=== PATIENT | male | born 1950 | race Caucasian/White ===

== ENCOUNTER 2019-04-25 20:34 | Inpatient (IN) ==
[2019-04-25] MEDS ORDERED: *HR* Enoxaparin 100 MG/ML SYRINGE SQ STA (20:51)
[2019-04-25 21:13] LABS: Basophils % 0.4 %; Eosinophils # 0.2 K/mcL (0.0-0.6); Eosinophils % 2.1 %; Hematocrit 40.8 % (37.5-50.1); Hemoglobin 13.9 g/dL (12.9-16.9); Immature Granulocytes % 0.5 % (0-4); Lymphocytes # 1.5 K/mcL (0.6-4.6); Lymphocytes % 18.5 %; Mean Corpuscular HGB Conc 34.1 g/dL (31.6-35.5); Mean Corpuscular Hemoglobin 27.3 pg (28.0-33.3); Mean Platelet Volume 9.6 fL (9.4-12.4); Monocytes # 0.6 K/mcL (0.0-1.3); Monocytes % 7.8 %; Neutrophils # 5.8 K/mcL (1.6-8.9); Platelet Count 230 K/mcL (140-400); Red Cell Distribution Width 14.5 % (11.5-14.5); Segmented Neutrophils % 70.7 %; White Blood Count 8.2 K/mcL (4.3-11.1)
[2019-04-25] MEDS: DilTIAZem 50 MG in 0.9 % Sodium Chloride 40 ML IVC SCH (21:31)
[2019-04-25 21:33] LABS: BUN/Creatinine Ratio 24 (6-26); Blood Urea Nitrogen 23 mg/dL (8-23); Carbon Dioxide 24 mEq/L (23-29); Chloride 107 mEq/L (98-107); Glucose 226 mg/dL (70-105); Osmolality,Calculated 299 (280-300); Potassium 4.1 mEq/L (3.5-5.1); Sodium 139 mEq/L (136-145); Troponin I < 0.03 ng/mL (< 0.04); eGFR For African Americans > 60 (> 60); eGFR For Non-African Americans > 60 (> 60)
[2019-04-25 21:37] LABS: INR 1.1; Prothrombin Time 12.3 Seconds (9.4-12.1)
[2019-04-25 21:40] LABS: Activated Partial Thrombo Time 28.9 Seconds (26.0-36.0)
[2019-04-25] MEDS ORDERED: Isovue-370 500 ML BOTTLE IVP ONE (22:16)
[2019-04-26] MEDS: DilTIAZem 50 MG in 0.9 % Sodium Chloride 40 ML IVC SCH ×4 (02:31→22:47)
[2019-04-26] MEDS: cloNIDine HCl 0.1 MG TABLET PO SCH ×3 (02:31→21:15)
[2019-04-26] MEDS: Benzonatate 100 MG CAPSULE PO PRN ×3 (02:31→22:46)
[2019-04-26] MEDS ORDERED: Ondansetron ODT 4 MG TAB.RAPDIS SL PRN (02:42)
[2019-04-26] MEDS ORDERED: Naloxone 0.4 MG/ML INJ IVP PRN (02:42)
[2019-04-26 03:13] LABS: Basophils % 0.3 %; Eosinophils # 0.1 K/mcL (0.0-0.6); Eosinophils % 1.3 %; Hematocrit 39.6 % (37.5-50.1); Hemoglobin 13.5 g/dL (12.9-16.9); Immature Granulocytes % 0.5 % (0-4); Lymphocytes # 1.5 K/mcL (0.6-4.6); Mean Corpuscular HGB Conc 34.1 g/dL (31.6-35.5); Mean Corpuscular Hemoglobin 27.3 pg (28.0-33.3); Mean Corpuscular Volume 80.2 fL (83.0-100.0); Mean Platelet Volume 9.8 fL (9.4-12.4); Monocytes # 0.7 K/mcL (0.0-1.3); Monocytes % 7.6 %; Neutrophils # 6.4 K/mcL (1.6-8.9); Platelet Count 215 K/mcL (140-400); Red Blood Count 4.94 M/mcL (4.19-5.50); Red Cell Distribution Width 14.6 % (11.5-14.5); Segmented Neutrophils % 73.3 %; White Blood Count 8.7 K/mcL (4.3-11.1)
[2019-04-26 03:19] LABS: VBG HCO3 22 mEq/L (21-27); VBG PCO2 31 mmHg (41-51); VBG PH 7.45 pH Units (7.32-7.42); VBG PO2 211 mmHg (25-50)
[2019-04-26 03:42] LABS: Adenovirus Not Detected (Not Detect); Bordetella Pertussis Not Detected (Not Detect); Chlamydophila pneumoniae Not Detected (Not Detect); Coronavirus 229E Not Detected (Not Detect); Coronavirus HKU1 Not Detected (Not Detect); Coronavirus NL63 Not Detected (Not Detect); Coronavirus OC43 Not Detected (Not Detect); Human Metapneumovirus Not Detected (Not Detect); Human Rhinovirus/Enterovirus Not Detected (Not Detect); Influenza A Subtype 2009 H1 Not Detected (Not Detect); Influenza B Not Detected (Not Detect); Mycoplasma pneumoniae Not Detected (Not Detect); Parainfluenza Virus 1 Not Detected (Not Detect); Parainfluenza Virus 2 Not Detected (Not Detect); Parainfluenza Virus 3 Not Detected (Not Detect); Parainfluenza Virus 4 Not Detected (Not Detect); Respiratory Syncytial Virus Not Detected (Not Detect)
[2019-04-26] MEDS: Furosemide 40 MG/4 ML VIAL IVP SCH ×3 (03:55→21:16)
[2019-04-26] MEDS ORDERED: hydrOXYzine pamoate 25 MG CAPSULE PO ONE (04:06)
[2019-04-26 05:44] LABS: Alanine Aminotransferase 15 Units/L (7-52); Albumin 4.3 g/dL (3.5-5.7); Albumin/Globulin Ratio 1.4 (1.1-2.2); Alkaline Phosphatase 143 Units/L (34-104); Aspartate Amino Transferase 18 Units/L (13-39); BUN/Creatinine Ratio 23 (6-26); Blood Urea Nitrogen 19 mg/dL (8-23); Calcium 9.7 mg/dL (8.6-10.3); Carbon Dioxide 22 mEq/L (23-29); Chloride 107 mEq/L (98-107); Globulin 3.1 g/dL (2.4-3.5); Glucose 188 mg/dL (70-105); Magnesium 1.9 mg/dL (1.6-2.6); Osmolality,Calculated 293 (280-300); Phosphorous 2.8 mg/dL (2.7-4.5); Potassium 3.5 mEq/L (3.5-5.1); Sodium 138 mEq/L (136-145); Total Protein 7.4 g/dL (6.4-8.9); eGFR For African Americans > 60 (> 60); eGFR For Non-African Americans > 60 (> 60)
[2019-04-26] MEDS ORDERED: D5% in Water 1,000 ML IVC PRN (07:35)
[2019-04-26] MEDS ORDERED: *HR* Dextrose 50 % in Water (Syg) 50 ML SYRINGE IVP PRN (07:35)
[2019-04-26] MEDS ORDERED: Dextrose Gel 15 GM/37.5 ML TUBE PO PRN ×2 (07:35)
[2019-04-26] MEDS: carvediloL 25 MG TABLET PO SCH ×2 (08:10→17:38)
[2019-04-26] MEDS: Apixaban 5 MG TABLET PO SCH ×2 (08:10→21:16)
[2019-04-26] MEDS: Insulin DETEMIR 100 UNIT/ML X5UNITS SQ SCH ×2 (09:03→21:15)
[2019-04-26] MEDS ORDERED: GuaiFENesin Liq 200 MG/10 ML UDC PO PRN (11:16)
[2019-04-26] MEDS: Insulin LISPRO 300 UNITS/3 ML VIAL SQ SCH ×2 (12:07→17:38)
[2019-04-27 02:53] LABS: Basophils % 0.4 %; Eosinophils # 0.2 K/mcL (0.0-0.6); Eosinophils % 2.1 %; Hematocrit 37.9 % (37.5-50.1); Hemoglobin 12.8 g/dL (12.9-16.9); Immature Granulocytes % 0.3 % (0-4); Lymphocytes # 1.6 K/mcL (0.6-4.6); Lymphocytes % 22.2 %; Mean Corpuscular HGB Conc 33.8 g/dL (31.6-35.5); Mean Corpuscular Hemoglobin 26.9 pg (28.0-33.3); Mean Corpuscular Volume 79.6 fL (83.0-100.0); Mean Platelet Volume 9.5 fL (9.4-12.4); Monocytes # 0.7 K/mcL (0.0-1.3); Monocytes % 9.6 %; Neutrophils # 4.6 K/mcL (1.6-8.9); Platelet Count 225 K/mcL (140-400); Red Blood Count 4.76 M/mcL (4.19-5.50); Red Cell Distribution Width 14.6 % (11.5-14.5); Segmented Neutrophils % 65.4 %; White Blood Count 7.1 K/mcL (4.3-11.1)
[2019-04-27 03:06] LABS: BUN/Creatinine Ratio 23 (6-26); Blood Urea Nitrogen 28 mg/dL (8-23); Calcium 9.5 mg/dL (8.6-10.3); Carbon Dioxide 25 mEq/L (23-29); Chloride 106 mEq/L (98-107); Glucose 147 mg/dL (70-105); Osmolality,Calculated 302 (280-300); Phosphorous 4.5 mg/dL (2.7-4.5); Potassium 3.4 mEq/L (3.5-5.1); Sodium 142 mEq/L (136-145); eGFR For African Americans > 60 (> 60); eGFR For Non-African Americans 59 (> 60)
[2019-04-27] MEDS: cloNIDine HCl 0.1 MG TABLET PO SCH ×2 (07:56→20:58)
[2019-04-27] MEDS: carvediloL 25 MG TABLET PO SCH (07:56)
[2019-04-27] MEDS: Furosemide 40 MG/4 ML VIAL IVP SCH (07:56)
[2019-04-27] MEDS: Apixaban 5 MG TABLET PO SCH ×2 (07:56→20:58)
[2019-04-27] MEDS: Insulin LISPRO 300 UNITS/3 ML VIAL SQ SCH ×3 (07:57→16:40)
[2019-04-27] MEDS: Insulin DETEMIR 100 UNIT/ML X5UNITS SQ SCH ×2 (07:58→21:10)
[2019-04-27] MEDS: DilTIAZem 50 MG in 0.9 % Sodium Chloride 40 ML IVC SCH (15:38)
[2019-04-27] MEDS ORDERED: Acetaminophen 325 MG TABLET PO PRN (17:53)
[2019-04-27] MEDS: Benzonatate 100 MG CAPSULE PO PRN (21:08)
[2019-04-28 05:21] LABS: Hematocrit 38.9 % (37.5-50.1); Hemoglobin 12.8 g/dL (12.9-16.9); Mean Corpuscular HGB Conc 32.9 g/dL (31.6-35.5); Mean Corpuscular Hemoglobin 27.2 pg (28.0-33.3); Mean Corpuscular Volume 82.6 fL (83.0-100.0); Mean Platelet Volume 9.7 fL (9.4-12.4); Platelet Count 196 K/mcL (140-400); Red Blood Count 4.71 M/mcL (4.19-5.50); Red Cell Distribution Width 14.6 % (11.5-14.5); White Blood Count 6.3 K/mcL (4.3-11.1)
[2019-04-28 05:33] LABS: BUN/Creatinine Ratio 26 (6-26); Blood Urea Nitrogen 27 mg/dL (8-23); Calcium 9.1 mg/dL (8.6-10.3); Carbon Dioxide 25 mEq/L (23-29); Chloride 109 mEq/L (98-107); Glucose 178 mg/dL (70-105); Osmolality,Calculated 302 (280-300); Potassium 3.6 mEq/L (3.5-5.1); Sodium 141 mEq/L (136-145); eGFR For African Americans > 60 (> 60); eGFR For Non-African Americans > 60 (> 60)
[2019-04-28 07:57] VITALS: BP 107/96
[2019-04-28] MEDS: Insulin LISPRO 300 UNITS/3 ML VIAL SQ SCH ×2 (08:25→11:58)
[2019-04-28] MEDS: Apixaban 5 MG TABLET PO SCH (08:26)
[2019-04-28] MEDS: cloNIDine HCl 0.1 MG TABLET PO SCH (08:27)
[2019-04-28] MEDS: Insulin DETEMIR 100 UNIT/ML X5UNITS SQ SCH (08:31)
[2019-04-28] MEDS ORDERED: Furosemide 40 MG TABLET PO SCH (09:00)
== END 2019-04-28 15:24 | disposition home or self-care (01) | DRG 308 ==
LOC: EMEROOARM 20:34 → 2NENU 20:34 → SUATTDRO 04-26 12:44
PROVIDERS: ADMIT Internal Medicine; ATTEND Family Medicine

== ENCOUNTER 2019-05-03 19:51 | Inpatient (IN) ==
[2019-05-03 20:29] LABS: Basophils % 0.4 %; Eosinophils # 0.1 K/mcL (0.0-0.6); Hematocrit 41.2 % (37.5-50.1); Immature Granulocytes % 0.4 % (0-4); Lymphocytes # 1.5 K/mcL (0.6-4.6); Lymphocytes % 13.6 %; Mean Corpuscular Hemoglobin 27.4 pg (28.0-33.3); Mean Corpuscular Volume 80.6 fL (83.0-100.0); Mean Platelet Volume 9.8 fL (9.4-12.4); Monocytes # 0.7 K/mcL (0.0-1.3); Monocytes % 6.3 %; Neutrophils # 8.6 K/mcL (1.6-8.9); Platelet Count 228 K/mcL (140-400); Red Blood Count 5.11 M/mcL (4.19-5.50); Red Cell Distribution Width 14.7 % (11.5-14.5); Segmented Neutrophils % 78.3 %
[2019-05-03 20:59] LABS: Alanine Aminotransferase 22 Units/L (7-52); Albumin 4.2 g/dL (3.5-5.7); Albumin/Globulin Ratio 1.4 (1.1-2.2); Alkaline Phosphatase 130 Units/L (34-104); Aspartate Amino Transferase 18 Units/L (13-39); BUN/Creatinine Ratio 20 (6-26); Bilirubin,Total 1.1 mg/dL (0.3-1.0); Blood Urea Nitrogen 17 mg/dL (8-23); Calcium 9.6 mg/dL (8.6-10.3); Carbon Dioxide 22 mEq/L (23-29); Chloride 105 mEq/L (98-107); Globulin 3.1 g/dL (2.4-3.5); Glucose 167 mg/dL (70-105); Osmolality,Calculated 289 (280-300); Potassium 3.8 mEq/L (3.5-5.1); Sodium 137 mEq/L (136-145); Total Protein 7.3 g/dL (6.4-8.9); Troponin I 0.04 ng/mL (< 0.04); eGFR For African Americans > 60 (> 60); eGFR For Non-African Americans > 60 (> 60)
[2019-05-03] MEDS ORDERED: DilTIAZem SR (12hr) 60 MG CAP.ER.12H PO ONE (21:30)
[2019-05-03] MEDS ORDERED: Naloxone 0.4 MG/ML INJ IVP PRN (23:19)
[2019-05-03] MEDS ORDERED: Ondansetron ODT 4 MG TAB.RAPDIS SL PRN (23:19)
[2019-05-03] MEDS ORDERED: Acetaminophen 325 MG TABLET PO PRN (23:19)
[2019-05-03] MEDS ORDERED: *HR* Dextrose 50 % in Water (Syg) 50 ML SYRINGE IVP PRN (23:30)
[2019-05-03] MEDS ORDERED: D5% in Water 1,000 ML IVC PRN (23:30)
[2019-05-03] MEDS ORDERED: Loratadine 10 MG TABLET PO PRN (23:30)
[2019-05-03] MEDS ORDERED: Dextrose Gel 15 GM/37.5 ML TUBE PO PRN ×2 (23:30)
[2019-05-03] MEDS ORDERED: Sucralfate 1 GM TABLET PO PRN (23:30)
[2019-05-03] MEDS: Insulin LISPRO 300 UNITS/3 ML VIAL SQ SCH (23:41)
[2019-05-04] MEDS ORDERED: Furosemide 20 MG/2 ML VIAL IVP ONE (00:28)
[2019-05-04] MEDS: cloNIDine HCl 0.1 MG TABLET PO SCH ×3 (00:29→21:17)
[2019-05-04] MEDS: Apixaban 5 MG TABLET PO SCH ×3 (00:30→21:17)
[2019-05-04] MEDS: Metoprolol 100 MG TABLET PO SCH ×3 (00:30→21:17)
[2019-05-04] MEDS: Ipratropium/Albuterol Neb 3 ML IH SCH ×3 (03:08→15:36)
[2019-05-04] MEDS ORDERED: GuaiFENesin Liq 200 MG/10 ML UDC PO PRN (04:10)
[2019-05-04 04:44] LABS: Hematocrit 37.6 % (37.5-50.1); Hemoglobin 12.8 g/dL (12.9-16.9); Mean Corpuscular Hemoglobin 27.1 pg (28.0-33.3); Mean Corpuscular Volume 79.7 fL (83.0-100.0); Mean Platelet Volume 10.2 fL (9.4-12.4); Platelet Count 206 K/mcL (140-400); Red Blood Count 4.72 M/mcL (4.19-5.50); Red Cell Distribution Width 14.9 % (11.5-14.5); White Blood Count 8.9 K/mcL (4.3-11.1)
[2019-05-04 05:06] LABS: BUN/Creatinine Ratio 18 (6-26); Blood Urea Nitrogen 15 mg/dL (8-23); Calcium 9.1 mg/dL (8.6-10.3); Carbon Dioxide 24 mEq/L (23-29); Chloride 103 mEq/L (98-107); Glucose 171 mg/dL (70-105); Osmolality,Calculated 293 (280-300); Potassium 3.4 mEq/L (3.5-5.1); Sodium 139 mEq/L (136-145); eGFR For African Americans > 60 (> 60); eGFR For Non-African Americans > 60 (> 60)
[2019-05-04 07:48] LABS: Estimated Average Glucose 148 mg/dl
[2019-05-04] MEDS ORDERED: Metoprolol 100 MG TABLET PO SCH (09:00)
[2019-05-04] MEDS: Insulin LISPRO 300 UNITS/3 ML VIAL SQ SCH ×4 (09:19→21:21)
[2019-05-04] MEDS ORDERED: Furosemide 40 MG/4 ML VIAL IVP ONE (09:27)
[2019-05-04] MEDS: predniSONE 20 MG TABLET PO SCH (13:58)
[2019-05-04] MEDS: DilTIAZem CD (24hr) 120 MG CAP.ER.24H PO SCH (13:59)
[2019-05-04] MEDS: Levalbuterol Neb 1.25 MG/3 ML IH SCH ×2 (19:52→21:41)
[2019-05-05] MEDS: Levalbuterol Neb 1.25 MG/3 ML IH SCH ×2 (03:54→09:57)
[2019-05-05 05:31] LABS: Hematocrit 41.5 % (37.5-50.1); Hemoglobin 13.8 g/dL (12.9-16.9); Mean Corpuscular HGB Conc 33.3 g/dL (31.6-35.5); Mean Corpuscular Hemoglobin 26.8 pg (28.0-33.3); Mean Corpuscular Volume 80.7 fL (83.0-100.0); Mean Platelet Volume 10.2 fL (9.4-12.4); Platelet Count 242 K/mcL (140-400); Red Blood Count 5.14 M/mcL (4.19-5.50); Red Cell Distribution Width 14.7 % (11.5-14.5); White Blood Count 8.3 K/mcL (4.3-11.1)
[2019-05-05 06:59] LABS: BUN/Creatinine Ratio 25 (6-26); Blood Urea Nitrogen 27 mg/dL (8-23); Calcium 9.8 mg/dL (8.6-10.3); Carbon Dioxide 24 mEq/L (23-29); Chloride 102 mEq/L (98-107); Glucose 310 mg/dL (70-105); Osmolality,Calculated 303 (280-300); Potassium 4.1 mEq/L (3.5-5.1); Sodium 138 mEq/L (136-145); eGFR For African Americans > 60 (> 60); eGFR For Non-African Americans > 60 (> 60)
[2019-05-05] MEDS ORDERED: Furosemide 40 MG TABLET PO SCH (09:00)
[2019-05-05] MEDS: Insulin LISPRO 300 UNITS/3 ML VIAL SQ SCH (09:15)
[2019-05-05] MEDS: Apixaban 5 MG TABLET PO SCH (09:16)
[2019-05-05] MEDS: cloNIDine HCl 0.1 MG TABLET PO SCH (09:16)
[2019-05-05] MEDS: DilTIAZem CD (24hr) 120 MG CAP.ER.24H PO SCH (09:16)
[2019-05-05] MEDS: predniSONE 20 MG TABLET PO SCH (09:17)
[2019-05-05] MEDS: Metoprolol 100 MG TABLET PO SCH (09:17)
[2019-05-05 10:00] VITALS: BP 146/115
== END 2019-05-05 10:55 | disposition home or self-care (01) | DRG 280 ==
LOC: 2NENU 19:51 → EMEROOARM 19:51 → SUATTDRO 22:39 → 2NENU 23:12
PROVIDERS: ADMIT Internal Medicine; ATTEND Family Medicine

== ENCOUNTER 2019-06-25 00:41 | Inpatient (IN) ==
[2019-06-25] MEDS ORDERED: Acetaminophen 325 MG TABLET PO PRN (03:05)
[2019-06-25] MEDS ORDERED: Ondansetron 4 MG/2 ML VIAL IVP PRN (03:05)
[2019-06-25] MEDS ORDERED: Naloxone 0.4 MG/ML INJ IVP PRN (03:05)
[2019-06-25] MEDS ORDERED: D5% in Water 1,000 ML IVC PRN (03:10)
[2019-06-25] MEDS ORDERED: Dextrose Gel 15 GM/37.5 ML TUBE PO PRN ×2 (03:10)
[2019-06-25] MEDS ORDERED: *HR* Dextrose 50 % in Water (Syg) 50 ML SYRINGE IVP PRN (03:10)
[2019-06-25 04:06] LABS: Basophils % 0.2 %; Eosinophils # 0.1 K/mcL (0.0-0.6); Eosinophils % 0.6 %; Hematocrit 46.2 % (37.5-50.1); Hemoglobin 15.2 g/dL (12.9-16.9); Immature Granulocytes % 0.3 % (0-4); Lymphocytes # 1.5 K/mcL (0.6-4.6); Lymphocytes % 16.8 %; Mean Corpuscular HGB Conc 32.9 g/dL (31.6-35.5); Mean Corpuscular Hemoglobin 26.5 pg (28.0-33.3); Mean Corpuscular Volume 80.6 fL (83.0-100.0); Mean Platelet Volume 10.3 fL (9.4-12.4); Monocytes # 0.7 K/mcL (0.0-1.3); Monocytes % 7.7 %; Neutrophils # 6.7 K/mcL (1.6-8.9); Platelet Count 213 K/mcL (140-400); Red Blood Count 5.73 M/mcL (4.19-5.50); Red Cell Distribution Width 17.3 % (11.5-14.5); Segmented Neutrophils % 74.4 %
[2019-06-25 04:11] LABS: INR 1.3; Prothrombin Time 14.4 Seconds (9.4-12.1)
[2019-06-25 04:27] LABS: BUN/Creatinine Ratio 14 (6-26); Blood Urea Nitrogen 13 mg/dL (8-23); Calcium 9.7 mg/dL (8.6-10.3); Carbon Dioxide 22 mEq/L (23-29); Chloride 107 mEq/L (98-107); Glucose 262 mg/dL (70-105); Magnesium 1.8 mg/dL (1.6-2.6); Osmolality,Calculated 299 (280-300); Phosphorous 3.3 mg/dL (2.7-4.5); Potassium 3.7 mEq/L (3.5-5.1); Sodium 140 mEq/L (136-145); eGFR For African Americans > 60 (> 60); eGFR For Non-African Americans > 60 (> 60)
[2019-06-25 04:31] LABS: Troponin I 0.05 ng/mL (< 0.04)
[2019-06-25] MEDS: DilTIAZem 50 MG in 0.9 % Sodium Chloride 40 ML IVC SCH ×3 (04:40→13:04)
[2019-06-25] MEDS: Insulin LISPRO 300 UNITS/3 ML VIAL SQ SCH ×6 (04:43→20:21)
[2019-06-25] MEDS ORDERED: *HR* Metoprolol 5 MG/5 ML VIAL IVP SCH (06:00)
[2019-06-25 08:31] LABS: Estimated Average Glucose 148 mg/dl
[2019-06-25] MEDS: Furosemide 40 MG TABLET PO SCH (08:54)
[2019-06-25] MEDS: Apixaban 5 MG TABLET PO SCH ×2 (08:54→20:21)
[2019-06-25] MEDS: DilTIAZem CD (24hr) 120 MG CAP.ER.24H PO SCH (08:54)
[2019-06-25] MEDS: Metoprolol 100 MG TABLET PO SCH ×2 (08:55→20:21)
[2019-06-25] MEDS ORDERED: cefTRIAXone 1,000 MG in 0.9 % Sodium Chloride Mini Bag 100 ML IVPB SCH (18:00)
[2019-06-26 01:01] LABS: Hematocrit 44.3 % (37.5-50.1); Hemoglobin 14.5 g/dL (12.9-16.9); Mean Corpuscular HGB Conc 32.7 g/dL (31.6-35.5); Mean Corpuscular Hemoglobin 26.5 pg (28.0-33.3); Platelet Count 236 K/mcL (140-400); Red Blood Count 5.47 M/mcL (4.19-5.50); Red Cell Distribution Width 17.6 % (11.5-14.5); White Blood Count 9.3 K/mcL (4.3-11.1)
[2019-06-26 01:18] LABS: BUN/Creatinine Ratio 19 (6-26); Blood Urea Nitrogen 21 mg/dL (8-23); Calcium 9.8 mg/dL (8.6-10.3); Carbon Dioxide 22 mEq/L (23-29); Chloride 106 mEq/L (98-107); Glucose 178 mg/dL (70-105); Osmolality,Calculated 295 (280-300); Potassium 3.8 mEq/L (3.5-5.1); Sodium 139 mEq/L (136-145); eGFR For African Americans > 60 (> 60); eGFR For Non-African Americans > 60 (> 60)
[2019-06-26] MEDS: DilTIAZem 50 MG in 0.9 % Sodium Chloride 40 ML IVC SCH ×2 (03:19→14:42)
[2019-06-26] MEDS: Apixaban 5 MG TABLET PO SCH ×2 (07:47→20:40)
[2019-06-26] MEDS: Furosemide 40 MG TABLET PO SCH (07:47)
[2019-06-26] MEDS: Insulin LISPRO 300 UNITS/3 ML VIAL SQ SCH ×4 (07:47→20:40)
[2019-06-26] MEDS: Metoprolol 100 MG TABLET PO SCH ×2 (07:47→20:40)
[2019-06-26] MEDS: DilTIAZem CD (24hr) 120 MG CAP.ER.24H PO SCH (07:47)
[2019-06-26] MEDS: Cefdinir 300 MG CAPSULE PO SCH ×2 (08:53→20:40)
[2019-06-26] MEDS ORDERED: DilTIAZem CD (24hr) 120 MG CAP.ER.24H PO ONE (12:45)
[2019-06-26] MEDS ORDERED: hydrOXYzine pamoate 25 MG CAPSULE PO ONE (14:29)
[2019-06-26] MEDS ORDERED: *HR* LORazepam 2 MG/ML VIAL IVP ONE (16:22)
[2019-06-26] MEDS: *HR* Metoprolol 5 MG/5 ML VIAL IVP PRN (16:44)
[2019-06-27 01:57] LABS: Hematocrit 47.4 % (37.5-50.1); Hemoglobin 15.3 g/dL (12.9-16.9); Mean Corpuscular HGB Conc 32.3 g/dL (31.6-35.5); Mean Corpuscular Hemoglobin 26.6 pg (28.0-33.3); Mean Corpuscular Volume 82.3 fL (83.0-100.0); Mean Platelet Volume 10.3 fL (9.4-12.4); Platelet Count 224 K/mcL (140-400); Red Blood Count 5.76 M/mcL (4.19-5.50); Red Cell Distribution Width 17.7 % (11.5-14.5); White Blood Count 9.1 K/mcL (4.3-11.1)
[2019-06-27 02:04] LABS: BUN/Creatinine Ratio 20 (6-26); Blood Urea Nitrogen 22 mg/dL (8-23); Calcium 9.7 mg/dL (8.6-10.3); Carbon Dioxide 24 mEq/L (23-29); Chloride 106 mEq/L (98-107); Glucose 168 mg/dL (70-105); Osmolality,Calculated 295 (280-300); Potassium 3.5 mEq/L (3.5-5.1); Sodium 139 mEq/L (136-145); eGFR For African Americans > 60 (> 60); eGFR For Non-African Americans > 60 (> 60)
[2019-06-27] MEDS: *HR* Metoprolol 5 MG/5 ML VIAL IVP PRN (04:10)
[2019-06-27] MEDS: DilTIAZem 50 MG in 0.9 % Sodium Chloride 40 ML IVC SCH ×2 (04:28→08:17)
[2019-06-27] MEDS: Insulin LISPRO 300 UNITS/3 ML VIAL SQ SCH ×4 (07:57→20:08)
[2019-06-27] MEDS: Lactobacillus 1 EACH CAP.SPRINK PO SCH (07:57)
[2019-06-27] MEDS: Apixaban 5 MG TABLET PO SCH ×2 (07:57→20:07)
[2019-06-27] MEDS: Metoprolol 100 MG TABLET PO SCH ×2 (07:58→20:07)
[2019-06-27] MEDS: Furosemide 40 MG TABLET PO SCH (07:58)
[2019-06-27] MEDS: Cefdinir 300 MG CAPSULE PO SCH ×2 (07:58→20:07)
[2019-06-27] MEDS ORDERED: DilTIAZem CD (24hr) 120 MG CAP.ER.24H PO SCH (09:00)
[2019-06-27] MEDS ORDERED: DilTIAZem CD (24hr) 120 MG CAP.ER.24H PO ONE (12:00)
[2019-06-27] MEDS ORDERED: Sennosides/Docusate Sodium TABLET PO PRN (17:04)
[2019-06-28 01:57] LABS: Hematocrit 49.9 % (37.5-50.1); Hemoglobin 15.7 g/dL (12.9-16.9); Mean Corpuscular HGB Conc 31.5 g/dL (31.6-35.5); Mean Corpuscular Hemoglobin 26.4 pg (28.0-33.3); Mean Corpuscular Volume 83.9 fL (83.0-100.0); Mean Platelet Volume 9.9 fL (9.4-12.4); Platelet Count 219 K/mcL (140-400); Red Blood Count 5.95 M/mcL (4.19-5.50); Red Cell Distribution Width 18.1 % (11.5-14.5); White Blood Count 8.4 K/mcL (4.3-11.1)
[2019-06-28 02:16] LABS: BUN/Creatinine Ratio 25 (6-26); Blood Urea Nitrogen 25 mg/dL (8-23); Calcium 9.9 mg/dL (8.6-10.3); Carbon Dioxide 22 mEq/L (23-29); Chloride 108 mEq/L (98-107); Glucose 226 mg/dL (70-105); Osmolality,Calculated 295 (280-300); Potassium 3.9 mEq/L (3.5-5.1); Sodium 137 mEq/L (136-145); eGFR For African Americans > 60 (> 60); eGFR For Non-African Americans > 60 (> 60)
[2019-06-28] MEDS: Cefdinir 300 MG CAPSULE PO SCH (08:02)
[2019-06-28] MEDS: Furosemide 40 MG TABLET PO SCH (08:02)
[2019-06-28] MEDS: Apixaban 5 MG TABLET PO SCH (08:02)
[2019-06-28] MEDS: Metoprolol 100 MG TABLET PO SCH (08:02)
[2019-06-28] MEDS: Lactobacillus 1 EACH CAP.SPRINK PO SCH (08:03)
[2019-06-28] MEDS: Insulin LISPRO 300 UNITS/3 ML VIAL SQ SCH ×2 (08:05→14:16)
[2019-06-28] MEDS ORDERED: DilTIAZem CD (24hr) 120 MG CAP.ER.24H PO SCH (09:00)
[2019-06-28 12:43] VITALS: BP 115/75
[2019-06-28] MEDS ORDERED: Metoprolol 100 MG TABLET PO SCH (14:00)
== END 2019-06-28 15:19 | disposition home or self-care (01) | DRG 690 ==
LOC: 2ANU → SUATTDRO 02:21
PROVIDERS: ADMIT Internal Medicine; ATTEND Family Medicine